=== PATIENT | female | born 1935 | race Caucasian/White ===

== ENCOUNTER 2019-09-19 08:39 | Outpatient (CLI) | payer MEDICARE, OTHER, SELFPAY ==
--- NOTE | 2019-09-19 08:40 | MM_ITS ---
WS: [id number] LEFT DIGITAL MAMMOGRAPHY WITH CAD CLINICAL INFORMATION: RT BREAST CA HISTORY: Right mastectomy COMPARISON: May 21, 2018 TECHNIQUE: 3 views of the left breast were obtained. FINDINGS: Scattered fibroglandular densities of the left breast. Vascular calcification. A few stable punctate calcifications in the superior left breast posterior depth and stable clustered calcifications mid le ft breast No suspicious focal mass, asymmetry, calcifications, or architectural distortion. No evidence of rai gnancy. MM/MM diagnostic mammo [id number] IMPRESSION: BI-RADS: 2-Benign FOLLOW UP: 1 Year Follow-up Recommend return to annual diagnostic mammography.
== END 2019-09-19 08:40 | disposition home or self-care (01) ==
LOC: RADSHAW 08:39
PROVIDERS: Family Provider Family Medicine; PCP Family Medicine; Visit Provider Family Medicine
DX: C50.911 Malignant neoplasm of unspecified site of right female breast (principal); R92.1 Mammographic calcification found on diagnostic imaging of breast
CPT/HCPCS: 77065

== ENCOUNTER 2020-09-29 10:39 | Emergency (ER) | payer MEDICARE, OTHER, SELFPAY ==
[2020-09-29 10:47] VITALS: BP 161/82; PULSE 65; RESP 16; TEMP 37.1; O2SAT 98; BMI 30.7
--- NOTE | 2020-09-29 11:11 | USR_ITS ---
PROCEDURE INFORMATION: Exam: US Duplex Left Lower Extremity Veins, Limited Exam date and time: 09/29/2020 11:12 AM Age: 84 years old Clinical indication: Swelling (edema) of limb; Lower extremity, left; Additional info: Lle swelling, calf tenderness TECHNIQUE: Imaging protocol: Real-time Duplex ultrasound of the Left Lower Extremity with 2-D ryan scale, color Doppler flow and spectral waveform analysis with image documentation. Limited exam focused on the left lower extremity veins. COMPARISON: No relevant prior studies available. FINDINGS: Left deep veins: Unremarkable. The common femoral, femoral, proximal profunda femoral and popliteal veins are patent without thrombus. Normal Doppler waveforms. Normal compressibility and/or augmentation response. Left superficial veins: Unremarkable. Saphenofemoral junction is patent without thrombus. Soft tissues: Unremarkable. US/CV venous duplex [facility] [id number] IMPRESSION: No evidence of deep vein thrombosis.
--- NOTE | 2020-09-29 11:31 | W.ED.EXTPRO ---
HPI - Extremity Problem General: Chief complaint: Extremity Problem,Nontraumatic Stated complaint: possible blood clot left leg Time Seen by Provider: 09/29/20 10:52 Source: patient Mode of arrival: ambulatory Limitations: no limitations History of Present Illness: HPI Narrative: 84-year-old female patient noticed pain in her left lower extremity of about a weeks duration. She went to see her primary care provider today who was concerned about a DVT and so asked her to come to the ED for evaluation of that. She denies any chest pain or shortness of breath. No trauma. MD Complaint: extremity pain and extremity swelling Onset (ago): week(s) (1) Pain Consistency: constant Location: left and lower extremity Quality: dull Radiation: none Relieving factors: nothing Exacerbating factors: nothing Associated symptoms: Deny fever(s) or rash Review of Systems General: Reports: 10 or more systems reviewed and unremarkable except in HPI and below Const: Denies: fever(s), chills or body aches Eyes: Denies: change in vision or blurry vision ENMT: Denies: throat pain, enlarged tonsils, odynophagia, hoarseness, mouth pain or swelling of lips/tongue Card: Denies: palpitations, irregular heart rhythm, edema or swelling of feet/ankles Resp: Denies: dyspnea, productive cough or non-productive cough GI: Denies: abdominal pain, nausea or vomiting : Denies: flank pain, difficulty voiding, dysuria, urinary frequency, urinary urgency or urinary hesitancy Musc: Reports: extremity pain and extremity swelling; Denies: neck pain or back pain Skin/Breast: Denies: rash, pruritus or erythema Neuro: Denies: headache(s), numbness in extremities or weakness in extremities Endo: Denies: polyuria, polydipsia or tired all the time Physical Exam Const: COMMON NORMALS: no acute distress, average body habitus, patient oriented x3, no limitations, healthy appearing, alert and well nourished HENMT: COMMON NORMALS: normocephalic, atraumatic and moist oral mucous membranes HEAD & SCALP: normocephalic and atraumatic Neck/C-Spine: COMMON NORMALS: no meningeal signs and no JVD Resp: COMMON NORMALS: normal respiratory effort, No retractions, No use of accessory muscles, clear to auscultation bilaterally and percussion normal AUSCULTATION: clear to auscultation bilaterally PERCUSSION: percussion normal Cardio: COMMON NORMALS: no JVD, regular rate, regular rhythm, S1 normal heart sound present, S2 normal heart sound present, No gallops present (Cardio), No clicks present (Cardio), No murmurs present (Cardio), No rub (Cardio) and Peripheral pulses 2+ throughout RATE: regular rate RHYTHM: regular rhythm HEART SOUNDS: S1 normal heart sound present and S2 normal heart sound present PERIPHERAL PULSES: Peripheral pulses 2+ throughout GI: COMMON NORMALS: Normal to inspection, nondistended, normoactive bowel sounds present, Soft to palpation, non-tender, No hepatosplenomegaly present, no masses and no bruits PALPATION: Yes Soft to palpation and Yes No hepatosplenomegaly present Extremity: COMMON NORMALS: normal to inspection, full ROM, capillary refill normal and no calf tenderness OTHER: Mild swelling of the left lower extremity compared to the right. Left calf tenderness. Positive Homans' sign. Neuro: COMMON NORMALS: patient oriented x3 SENSORIUM/ORIENTATION: Yes alert MENINGEAL SIGNS: Yes no meningeal signs Skin: COMMON NORMALS: no rashes or lesions noted, no wounds, turgor normal, no jaundice, no petechiae and no mottling GENERAL SKIN EXAM: no rashes or lesions noted and turgor normal Course Reevaluation(s): Reevaluation #1: Discussed imaging findings with her. Negative for DVT. We will discharge her home on conservative measures. She voiced understanding and is in agreement with the plan. Time: 12:57 Vital Signs: Vital signs: Vital Signs Temperature 98.7 F 09/29/20 10:47 Pulse Rate 87 09/29/20 13:17 Respiratory Rate 18 09/29/20 13:17 Blood Pressure 165/84 09/29/20 13:17 Pulse Oximetry 98 09/29/20 13:17 MDM - Extremity (Nontraumatic) MDM Narrative: Medical decision making narrative: 84-year-old female patient who was sent to the emergency department for evaluation of a possible DVT in her left lower extremity. She had had some pain and swelling to the left lower extremity, venous Doppler done today was negative for DVT and she is discharged home with no new orders. Medical Records: Attestation: I reviewed the patient's medical records. Imaging Data^: US Vascular: Attestation: I personally reviewed and interpreted this imaging study as follows: Radiologist's impression: [address] [place] [address] Ultrasound Report Signed Patient: Sarah Francois #: [id number] : 6Acct#:[id number] Age/Sex: 84 / FADM Date: 09/29/20 Loc: ERRoom/Bed: Attending Dr: Ordering Provider/Ordering MD: Josh Peng [place] [facility] [place] of Service: 09/29/20 Procedure(s): [place] [address] Accession Number(s): [id number] Report Number: [id number] PROCEDURE INFORMATION: Exam: US Duplex Left Lower Extremity Veins, Limited Exam date and time: 09/29/2020 11:12 AM Age: 84 years old Clinical indication: Swelling (edema) of limb; Lower extremity, left; Additional info: Lle swelling, calf tenderness TECHNIQUE: Imaging protocol: Real-time Duplex ultrasound of the Left Lower Extremity with 2-D ryan scale, color Doppler flow and spectral waveform analysis with image documentation. Limited exam focused on the left lower extremity veins. COMPARISON: No relevant prior studies available. FINDINGS: Left deep veins: Unremarkable. The common femoral, femoral, proximal profunda femoral and popliteal veins are patent without thrombus. Normal Doppler waveforms. Normal compressibility and/or augmentation response. Left superficial veins: Unremarkable. Saphenofemoral junction is patent without thrombus. Soft tissues: Unremarkable. US/[place] [id number] IMPRESSION: No evidence of deep vein thrombosis. Dictated By:Clraence Rosales Signed By:Frankie Rosales Date/Time:09/29/20 1243 DD/ 1241 Discharge Plan Discharge Patient Disposition: Home Clinical Impression: Acute pain of left lower extremity Condition: Stable Prescriptions: Continued benazepril-hydrochlorothiazide 20-25 mg tablet 1 tab PO DAILY RF: 0 Vitamin D3 1 tab PO DAILY RF: 0 Discharge Orders: Discharge ED (Routine); Ordered 09/29/20 Ordered By: Josh Peng Referrals: Jacqueline Friedman MD [Primary Care Provider] - 1-3 days Discharge Diet: Usual diet Discharge Activity: Increase activity as tolerated Patient Instructions: Musculoskeletal Pain (ED) Activity Restrictions/Additional Instructions: Return for any new or worsening symptoms. Follow-up with your primary care provider within 3 days. Take Tylenol or ibuprofen as needed for pain. Coding Level of Care Code ED Pathology Transcriptionist for Tatyana Fwd Exam Comprehensive
[2020-09-29 11:56] VITALS: PULSE 68
[2020-09-29 13:17] VITALS: BP 165/84; PULSE 87; RESP 18; O2SAT 98
== END 2020-09-29 13:18 | disposition home or self-care (01) ==
PROVIDERS: Emergency Provider Family Medicine; PCP Family Medicine
DX: M79.605 Pain in left leg (principal)
CPT/HCPCS: 93971; 99282

== ENCOUNTER 2020-10-10 14:52 | Outpatient (CLI) | payer MEDICARE, OTHER, SELFPAY ==
--- NOTE | 2020-10-10 14:54 | MM_ITS ---
WS: [id number] DIAGNOSTIC LEFT DIGITAL MAMMOGRAM WITH CAD HISTORY: HX OF BREAST Ca; rt MAST COMPARISON: None available. Technique: CC, MLO and ML views. Breast composition: There are scattered areas of fibroglandular density. Clustered calcifications in the superior posterior LEFT breast is not seen on the CC projection. These have been previously desc ribed and evaluated. The number of calcifications is minimally increased. There is a soft tissue comp onent. These calcifications need to be worked up additionally. MM/[place] [id number] IMPRESSION: BI-RADS: 0-Incomplete: Need additional imaging evaluation FOLLOW UP: Need Additional Imaging LEFT breast: Spot compression views (exaggerated lateral and possibly medial CC and MLO). True ML. Ultrasound to follow if abnormality persists.
== END 2020-10-10 14:53 | disposition home or self-care (01) ==
LOC: RADSHAW 14:54
PROVIDERS: PCP Family Medicine; Visit Provider Family Medicine
DX: Z85.3 Personal history of malignant neoplasm of breast (principal); Z90.11 Acquired absence of right breast and nipple; R92.1 Mammographic calcification found on diagnostic imaging of breast
CPT/HCPCS: 77065

== ENCOUNTER 2020-10-22 15:40 | Outpatient (CLI) | payer MEDICARE, OTHER, SELFPAY ==
[2020-10-22 17:03] LABS: Thyroid Stimulating Hormone 0.58 uIU/mL (0.27-4.20)
[2020-10-23 05:12] LABS: T3 Total 124 ng/dL (76-181)
[2020-10-25 20:52] LABS: TSH Receptor Binding Antibody <1.00 IU/L (< OR = 2.00)
== END 2020-10-22 15:41 | disposition home or self-care (01) ==
LOC: LAB 16:00
PROVIDERS: PCP Family Medicine; Visit Provider Internal Medicine
DX: E04.2 Nontoxic multinodular goiter (principal); R79.89 Other specified abnormal findings of blood chemistry; Z79.899 Other long term (current) drug therapy
CPT/HCPCS: 36415; 83516; 84443; 84480; 99203; 99204

== ENCOUNTER 2020-11-08 15:30 | Outpatient (CLI) | payer MEDICARE, OTHER, SELFPAY ==
--- NOTE | 2020-11-08 | USCV_ITS ---
Sarah Francois Age: 84 Gender: F : 1935 Exam Date: 11/08/2020 15:24 Ordering Phys: Jacqueline Friedman MD Technologist: Shefali Srinivasan Exam Location: [facility] [place] Indication: LT LEG PAIN RIGHT LEFT Brachial 161.00 mmHg Brachial 162.00 mmHg Pressure (mmHg) Waveform Pressure (mmHg) Waveform 159.00 FINAL OPERATIONS TECHNICIAN 88.00 121.00 DPA 79.00 0.75 Ankle/Brachial Index 0.33 FINDINGS Minimally diminished resting SERGEY on the right side Arteriotomies resting SERGEY on the left side CONCLUSIONS 1. Abnormal SERGEY, suggestive of severe peripheral artery disease on the left side 2. Abnormal ABIs, suggestive of mild peripheral artery disease on the right side Dr Denver Galvez MD [facility]ATED [facility]IN [facility] (Electronically Signed) Final Date: 12 Nov 2020 10:36 S
== END 2020-11-08 15:31 | disposition home or self-care (01) ==
LOC: US 15:33
PROVIDERS: PCP Family Medicine; Visit Provider Family Medicine
DX: I73.9 Peripheral vascular disease, unspecified (principal); M79.605 Pain in left leg
CPT/HCPCS: 93922

== ENCOUNTER 2020-12-31 11:15 | Outpatient (CLI) | payer MEDICARE, OTHER, SELFPAY ==
--- NOTE | 2020-12-31 11:31 | MM_ITS ---
WS: [id number] ADDITIONAL VIEWS LEFT MAMMOGRAM HISTORY: LT BREAST CALCS COMPARISON: 09/19/2019, 05/21/2018 Spot compression views LEFT breast in CC, MLO projections and true ML submitted. Cluster of calcifications in the upper-outer quadrant of the LEFT breast towards the axillary tail is again identified. There are calcifications. Some of these are round and some of these calcifications are linear. These calcifications were present in 2018 but the number is increased and the calcificat ion morphology is more linear. MM/[place] [id number] IMPRESSION: BI-RADS: 4-Suspicious Finding-Biopsy Should Be Considered FOLLOW UP: Biopsy Recommended Stereotactic biopsy recommended of LEFT breast calcifications. Notified Jacqueline Friedman MD at 12/31/2020 11:57 AM.
== END 2020-12-31 11:16 | disposition home or self-care (01) ==
LOC: RADSHAW 11:18
PROVIDERS: PCP Family Medicine; Visit Provider Family Medicine
DX: N64.89 Other specified disorders of breast (principal); R92.1 Mammographic calcification found on diagnostic imaging of breast
CPT/HCPCS: 77065

== ENCOUNTER 2020-12-31 12:01 | Outpatient (CLI) | payer MEDICARE, OTHER, SELFPAY ==
--- NOTE | 2020-12-31 13:30 | US_ITS ---
WS: [id number] THYROID ULTRASOUND (TI-RADS CRITERIA) History: Thyroid nodule.. Technique: Ultrasound examination of the thyroid and adjacent soft tissues is performed. FINDINGS: Right lobe: 2.0 cm x 1.1 cm x 1.5 cm. Volume: 1.6 cm3. Lobulated soft tissue at the RIGHT thyroid may be residual thyroid. May be a shrunken thyroid gland. Lymph nodes: None. Left lobe: 7.3 cm x 2.8 cm x 3.6 cm. Volume: 37.5 cm3. Along the LEFT neck at the region of the thyroid is a large heterogeneous mass. Heterogeneous mass es sentially fills the entire thyroid. Margins are difficult to define. Lymph nodes: None. There is a large mixed echogenicity mass in the region of the LEFT thyroid. Both solid and cystic com ponents and a few scattered calcifications. Mass extends into the isthmus. ACR TI-RADS total points: 7 ACR TI-RADS risk category: TR5 Isthmus: 0.2 cm. LEFT isthmus is enlarged. US/US thyroid [id number] Impression: TR5 Recommendation:Fine needle aspiration recommended of the large heterogeneous ma ss centered in the LEFT thyroid. There are concerning features. Neoplasm versus goiter. I
== END 2020-12-31 12:02 | disposition home or self-care (01) ==
PROVIDERS: PCP Family Medicine; Visit Provider Internal Medicine
DX: E04.1 Nontoxic single thyroid nodule (principal)
CPT/HCPCS: 76536

== ENCOUNTER 2021-01-22 11:53 | Outpatient (CLI) | payer MEDICARE, OTHER, SELFPAY ==
--- NOTE | 2021-01-22 12:04 | MM_ITS ---
WS: [id number] LEFT DIGITAL MAMMOGRAPHY WITH CAD CLINICAL INFORMATION: LT BREAST CALCIFICATIONS COMPARISON: December 31, 2020 and October 10, 2020 TECHNIQUE: 6 views of the left breast were obtained. FINDINGS: Scattered fibroglandular densities of the left breast. Again seen are the cluster of heterogeneous ca lcifications in the upper outer quadrant left breast posterior depth. These have slightly increased s tawanna 2018 and are nonspecific. Stereotactic biopsy not performed today due to large overlying vessels. RECOMMEND STEREOTACTIC NEEDLE LOCALIZATION WITH SURGICAL RESECTION. MM/[place] [id number] IMPRESSION: BI-RADS: 4-Suspicious Finding-Biopsy Should Be Considered FOLLOW UP: Surgical Biopsy Recommended
[2021-01-22 12:46] LABS: INR 1.02 (0.8-1.2)
== END 2021-01-22 11:54 | disposition home or self-care (01) ==
LOC: RADSHAW 12:01
PROVIDERS: PCP Family Medicine; Visit Provider Family Medicine
DX: R92.1 Mammographic calcification found on diagnostic imaging of breast (principal); N64.89 Other specified disorders of breast
CPT/HCPCS: 19081; 36415; 77065; 85610

== ENCOUNTER → 2021-04-19 09:57 | Outpatient (BNVA) | payer MEDICARE, OTHER, SELFPAY | PROVIDERS: PCP Family Medicine; Visit Provider Surgery | DX: Z01.812 Encounter for preprocedural laboratory examination (principal); Z20.822 Contact with and (suspected) exposure to COVID-19 | CPT/HCPCS: 87635 ==

== ENCOUNTER 2021-04-23 10:15 | Emergency (ER) | payer MEDICARE, OTHER, SELFPAY ==
--- NOTE | 2021-04-23 10:25 | XR_ITS ---
WS: [id number] XR chest 1V portable [id number] REASON FOR EXAM: chest pain FINDINGS: Moderate tortuosity the thoracic aorta. Heart at the upper limits of normal. Calcified granulomatous disease in both hemithoraces. No active pulmonary parenchymal or pleural disease noted. Degenerative changes in the mid and lower thoracic spine. XR/XR chest 1V portable [id number] IMPRESSION: No acute chest abnormality.
--- NOTE | 2021-04-23 10:26 | ECG_ITS ---
[facility] Test Date: 2021-04-23 Pat Name: Sarah Francois Department: Room: Gender: Female Multimedia Services Coordinator: : 1935 Requested By: Deb Manzo Order Number: [id number] Gisel MD: Denver Galvez M.D. Measurements Intervals Eleva Rate: 45 P: 71 HI: 201 QRS: 90 QRSD: 73 T: 71 QT: 465 QTc: 406 Interpretive Statements SINUS BRADYCARDIA WITH SINUS ARRHYTHMIA LOW QRS VOLTAGE IN PRECORDIAL LEADS [QRS DEFLECTION < 1.0 mV IN CHEST LEADS] MARKED ST ELEVATION, CONSIDER INFERIOR INJURY /early repolarization changes [MARKED ST ELEVATION W/O NORMALLY INFLECTED T-WAVE IN II/aVF] ACUTE ID Compared to ECG 12/30/2018 07:48:59 Low QRS voltage now present ST (T wave) deviation now present Myocardial infarct finding now present Electronically Signed On 04-24-2021 19:52:34 CDT by Denver Galvez M.D. [id number]
[2021-04-23 10:53] VITALS: BP 114/67; PULSE 66; RESP 18; TEMP 36.7; O2SAT 100; BMI 27.9
--- NOTE | 2021-04-23 11:17 | ED_ITS ---
HPI - Chest Pain General: Chief Complaint: Chest Pain Stated Complaint: CP Time Seen by Provider: 04/23/21 11:12 History of Present Illness: HPI narrative: This patient is a 85-year-old female who presents to the emergency department with complaint of atypical type chest pain. Patient describes related to epigastrium area and slightly to the left. Patient also describes some pressure. 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 Patient just complains of fatigue and also describes some dizziness when she first got up this morning. Upon arrival EKG was performed and the patient is a sinus bradycardic rhythm and sinus arrhythmia with a heart rate of 45. Questionable ST changes. Will have EKG reviewed by cardiology. Patient does take aspirin and Plavix at home and recently had an iliac stent placed. Patient does have a history of breast cancer. Patient has held her Plavix due to a breast biopsy that is scheduled this week. I did speak to Dr. Leonila valladares about the patient's EKG. He states no ST elevation at this time but is agreeable for atropine due to low heart rate to see if it resolves patient's symptoms. Will do medical evaluation treat as needed MD complaint: chest pain Pertinent past history: coronary artery disease Onset (ago): hour(s) Timing of current episode: constant Prior episodes: No Onset: during exertion Pain location: substernal Pain radiation: none Severity: moderate Quality: aching Relieving factors: nothing Exacerbating factors: nothing Associated symptoms: Deny abdominal pain, dyspnea, fever(s), nausea, palpitations or vomiting Review of Systems General: Reports: 10 or more systems reviewed and unremarkable except in HPI and below Const: Denies: fever(s), chills, body aches or fatigue Eyes: Denies: change in vision or blurry vision ENMT: Denies: throat pain, hoarseness or mouth pain Card: Reports: chest pain and lightheadedness; Denies: palpitations, irregular heart rhythm, edema or swelling of feet/ankles Resp: Denies: dyspnea, productive cough, non-productive cough, wheezing or pain on inspiration GI: Denies: abdominal pain, nausea or vomiting : Denies: flank pain, difficulty voiding, dysuria, urinary frequency, urinary urgency or urinary hesitancy Musc: Denies: neck pain, back pain, extremity pain, extremity swelling, joint pain, joint swelling, joint redness, joint warmth or limited range of motion Skin/Breast: Denies: rash, pruritus, erythema or skin tenderness Neuro: Denies: headache(s), numbness in extremities or weakness in extremities Psych: Denies: anxiety or depression PFSH ED PFSH: Social History Smoking and tobacco status: never smoked Second hand smoke exposure: Yes Alcohol intake: current Alcohol intake frequency: holidays/special occasions only Physical Exam Const: COMMON NORMALS: no acute distress, average body habitus, patient oriented x3, no limitations, healthy appearing, alert and well nourished HENMT: COMMON NORMALS: normocephalic, atraumatic, hearing grossly normal bilaterally, external ears normal, EAC's normal, TM's normal bilaterally, Normal external nose present, Normal nasal mucous membranes and turbinates present, moist oral mucous membranes, oropharynx normal, dentition normal and gingiva normal HEAD & SCALP: normocephalic and atraumatic NOSE: Normal external nose present and Normal nasal mucous membranes and turbinates present EXTERNAL EAR: Yes external ears normal EXTERNAL AUDITORY CANAL: EAC's normal TYMPANIC MEMBRANE: TM's normal bilaterally Neck/C-Spine: COMMON NORMALS: full ROM, no lymphadenopathy, supple, no meningeal signs, no JVD, Thyroid normal and No carotid bruits THYROID: Thyroid normal Chest: COMMONS NORMALS: normal inspection of the chest, normal palpation of entire chest wall, normal inspection of the breasts and normal palpation of the breasts Breast/axilla inspection: Yes normal inspection of the breasts BREAST/AXILLA PALPATION: Yes normal palpation of the breasts Resp: COMMON NORMALS: normal respiratory effort, No retractions, No use of accessory muscles, clear to auscultation bilaterally and percussion normal AUSCULTATION: clear to auscultation bilaterally PERCUSSION: percussion normal Cardio: COMMON NORMALS: no JVD, regular rate, regular rhythm, S1 normal heart sound present, S2 normal heart sound present, No gallops present (Cardio), No clicks present (Cardio), No murmurs present (Cardio), No rub (Cardio) and Peripheral pulses 2+ throughout RATE: regular rate RHYTHM: regular rhythm HEART SOUNDS: S1 normal heart sound present and S2 normal heart sound present PERIPHERAL PULSES: Peripheral pulses 2+ throughout GI: COMMON NORMALS: Normal to inspection, nondistended, normoactive bowel sounds present, Soft to palpation, non-tender, No hepatosplenomegaly present, no masses and no bruits PALPATION: Yes Soft to palpation and Yes No hepatosplenomegaly present Back/Pelvis: COMMON NORMALS: thoracic and lumbar spine normal to inspection, no thoracic nor lumbar tenderness, thoraco-lumbar ROM normal and straight leg raise negative bilaterally Extremity: COMMON NORMALS: normal to inspection, full ROM, capillary refill normal, no joint enlargement, no clubbing, cyanosis or edema, no calf tenderness and no pedal edema Neuro: COMMON NORMALS: patient oriented x3 SENSORIUM/ORIENTATION: Yes alert MENINGEAL SIGNS: Yes no meningeal signs Course Reevaluation(s): Reevaluation #1: Patient received atropine heart rate up to 86 and all symptoms resolved. Patient complains of no chest pain. Time: 12:35 Reevaluation #2: Patient is requesting to be discharged home patient maintained symptom-free and heart rate stays in the mid 60s to low 70s. Patient states understands will be set up for an outpatient Holter monitor and will be referred to cardiology for outpatient appointment. Time: 14:36 Consultations: Consultation #1: I have discussed with Dr. Lopez cardiology patient and EKG findings. He agrees no ST elevation on EKG at this time. He also agrees with IV atropine due to bradycardia. He is available for further consultation as needed. Time: 11:24 Consultation #2: I did discuss at length with Dr. Keen he is agreeable to see the patient as an outpatient in the clinic. He agrees with Holter monitor. Time: 14:37 Vital Signs: Vital signs: Vital Signs Temperature 98.0 F 04/23/21 10:53 Pulse Rate 74 04/23/21 13:58 Respiratory Rate 17 04/23/21 13:58 Blood Pressure 177/83 04/23/21 12:32 Pulse Oximetry 98 04/23/21 13:58 MDM - Chest Pain MDM Narrative: Medical decision making narrative: This patient is a 85-year-old female who presents to the emergency department with complaint of atypical type chest pain. Patient describes related to epigastrium area and slightly to the left. Patient also describes some pressure. 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 Patient just complains of fatigue and also describes some dizziness when she first got up this morning. Upon arrival EKG was performed and the patient is a sinus bradycardic rhythm and sinus arrhythmia with a heart rate of 45. Questionable ST changes. Will have EKG reviewed by cardiology. Patient does take aspirin and Plavix at home and recently had an iliac stent placed. Patient does have a history of breast cancer. Patient has held her Plavix due to a breast biopsy that is scheduled this week. I did speak to Dr. Keen cardiology about the patient's EKG. He states no ST elevation at this time but is agreeable for atropine due to low heart rate to see if it resolves patient's symptoms. Will do medical evaluation treat as needed Lab Data: Labs: Lab Results 04/23/21 04/23/21 04/23/21 13:10 13:10 13:10 WBC 10.7 10^3/uL H 10 ^3/uL (4.0-10.0) RBC 4.91 10^6/uL 10^6 /uL (4.1-5.3) Hgb 14.3 g/dL g/dL (11.5-15.3) Hct 46.0 % % (37.0-47.0) MCV 93.7 fl fl (81-99) MCH 29.1 pg pg (28.0-34.0) MCHC 31.1 g/dL g/dL (30.0-36.0) RDW 12.4 % % (12.1-15.1) Plt Count 232 10^3/cmm 10^3 /cmm (130-400) MPV 9.5 fL fL (7.4-10.4) Neut % (Auto) 85.4 % % Lymph % (Auto) 7.7 % % [place] % (Auto) 5.8 % % Eos % (Auto) 0.5 % % Baso % (Auto) 0.3 % % Neut # (Auto) 9.15 10^3/uL H 10 ^3/uL (1.8-7.7) Lymph # (Auto) 0.8 10^3/uL 10^3/ uL (0.8-4.8) [place] # (Auto) 0.6 10^3/uL 10^3/ uL (0.2-0.9) Eos # (Auto) 0.1 10^3/uL 10^3/ uL (0.0-0.8) Baso # (Auto) 0.0 10^3/uL 10^3/ uL (0.0-0.1) Nucleated RBC % (a uto) 0 % % Nucleated RBCs # 0.0 /100WBC /100W BC Sodium 140 mmol/L mmol/L (136-145) Potassium 4.3 mmol/L mmol/L (3.5-5.1) Chloride 107 mmol/L mmol/L (98-107) Carbon Dioxide 26 mmol/L mmol/L (22-29) Anion Gap 11.3 (5-19) BUN 15 mg/dL mg/dL (8-23) Creatinine 0.6 mg/dL mg/dL (0.5-0.9) GFR Calculation Not Reportable Glucose 122 mg/dL H mg/dL (65-115) Calculated Osmolal ity 292 mOsm/kg mOsm/ kg (285-295) Calcium 9.4 mg/dL mg/dL (8.5-10.5) Total Bilirubin 1.0 mg/dL mg/dL (0.15-1.2) AST 82 U/L H U/L (0-32) ALT 42 U/L H U/L (0-33) Alkaline Phosphata se 97 IU/L IU/L (35-105) Troponin T Baselin e 6 ng/L ng/L (0-10) Total Protein 7.3 g/dL g/dL (6.6-8.7) Albumin 3.9 g/dL g/dL (3.5-5.2) Globulin 3.4 g/dL g/dL (1.3-4.6) Imaging Data^: CXR: Attestation: I personally reviewed and interpreted this imaging study as follows: Radiologist's impression: FINDINGS: Moderate tortuosity the thoracic aorta. Heart at the upper limits of normal. Calcified granulomatous disease in both hemithoraces. No active pulmonary parenchymal or pleural disease noted. Degenerative changes in the mid and lower thoracic spine. XR/XR chest 1V portable [id number] IMPRESSION: No acute chest abnormality. EKG Data^: EKG 1: Attestation: I personally reviewed and interpreted this EKG as follows: EKG interpretation date: 04/23/21 EKG interpretation time: 11:02 Prior EKG tracings: not available for review Ischemic changes: non-specific ST-T wave changes Interpretation: Sinus bradycardia with sinus arrhythmia heart rate 45. Nonspecific EKG changes possibly repolarization issue. Reviewed with cardiology. EKG 2: Attestation: I personally reviewed and interpreted this EKG as follows: EKG interpretation date: 04/23/21 EKG interpretation time: 13:04 Prior EKG tracings: available for review Interpretation: Sinus rhythm with a heart rate of 80 nonspecific EKG changes. Patient is pain-free. Discharge Plan Discharge Patient Disposition: Home Clinical Impression: Bradycardia Condition: Stable Prescriptions: No Action timolol 0.5 % drops 1 drp ophthalmic (eye) BID RF: 0 clopidogrel [Plavix] 75 mg tablet 75 mg PO BEDTIME RF: 0 aspirin [Adult Aspirin Regimen] 81 mg tablet,delayed release (DR/EC) 81 mg PO QAM RF: 0 colchicine 0.6 mg tablet 0.6 mg PO DAILY PRN (Reason: gout) RF: 0 Vitamin D3 25 mcg (1,000 unit) Capsule 3,000 unit PO QAM RF: 0 Discharge Orders: Discharge ED (Routine); Ordered 04/23/21 Ordered By: Edilberto Valdivia Referrals: Jacqueline Friedman MD [Primary Care Provider] - Miquel Keen M.D [Physician] - Discharge Diet: Advance as tolerated Patient Instructions: Opioid Safety Activity Restrictions/Additional Instructions: Follow-up with cardiology as instructed. Case management was set up for Holter monitor. Wear as instructed. Keep a daily blood pressure log first thing in the morning and in the evening. Write down your blood pressure pulse and time review this with cardiology. Return to the emergency department if symptoms fail to improve or worsen Coding Level of Care Code ED Computer Language Coder for Tatyana Fwd Exam Comprehensive
[2021-04-23 11:47] VITALS: BP 163/79; PULSE 47; RESP 13; O2SAT 99
[2021-04-23] MEDS: aspirin 81 mg EC Tablet 162 MG PO (12:06)
[2021-04-23] MEDS: atropine 0.1 mg/mL Syr 10 mL 1 MG IVP (12:29)
[2021-04-23 12:32] VITALS: BP 177/83; PULSE 89; RESP 19; O2SAT 99
[2021-04-23 13:19] LABS: Basophils % 0.3 %; Eosinophils # 0.1 10^3/uL (0.0-0.8); Eosinophils % 0.5 %; Hemoglobin 14.3 g/dL (11.5-15.3); Lymphocytes # 0.8 10^3/uL (0.8-4.8); Lymphocytes % 7.7 %; Mean Corpuscular HGB Conc 31.1 g/dL (30.0-36.0); Mean Corpuscular Hemoglobin 29.1 pg (28.0-34.0); Mean Corpuscular Volume 93.7 fl (81-99); Mean Platelet Volume 9.5 fL (7.4-10.4); Monocytes # 0.6 10^3/uL (0.2-0.9); Monocytes % 5.8 %; Neutrophils # 9.15 10^3/uL (1.8-7.7); Neutrophils % 85.4 %; Nucleated Red Blood Cells % 0 %; Platelet Count 232 10^3/cmm (130-400); Red Blood Count 4.91 10^6/uL (4.1-5.3); Red Cell Distribution Width 12.4 % (12.1-15.1); White Blood Count 10.7 10^3/uL (4.0-10.0)
[2021-04-23 13:48] LABS: Troponin(5th) Baseline 6 ng/L (0-10)
--- NOTE | 2021-04-23 13:48 | PC.PHAR ---
pt states she takes care of her own medications-pt states she is suppose to take benazepril-hctz 20-25mg daily pt states she hasnt taken in 2 months pt states she tries to get refills but never gets them-ext med history shows last filled 11/27/20 30d/s
[2021-04-23 13:51] LABS: Alanine Aminotransferase 42 U/L (0-33); Albumin Level 3.9 g/dL (3.5-5.2); Alkaline Phosphatase 97 IU/L (35-105); Anion Gap 11.3 (5-19); Aspartate Amino Transferase 82 U/L (0-32); Blood Urea Nitrogen 15 mg/dL (8-23); Calcium 9.4 mg/dL (8.5-10.5); Carbon Dioxide 26 mmol/L (22-29); Chloride 107 mmol/L (98-107); Globulin 3.4 g/dL (1.3-4.6); Glucose 122 mg/dL (65-115); Osmolality Calculated 292 mOsm/kg (285-295); Potassium 4.3 mmol/L (3.5-5.1); Sodium 140 mmol/L (136-145); Total Protein 7.3 g/dL (6.6-8.7)
[2021-04-23 13:58] VITALS: PULSE 74; RESP 17; O2SAT 98
[2021-04-23 14:58] VITALS: PULSE 88; O2SAT 99
--- NOTE | 2021-04-23 15:14 | DCPLANNER ---
therapeutic case manager had message to schedule a follow up appointment for patient with heart care for a 72 hour halter monitor. therapeutic case manager faxed signed order to centralized scheduling, who will call patient with appointment information.
--- NOTE | 2021-04-23 16:26 | ECG_ITS ---
[facility] Test Date: 2021-04-23 Pat Name: Sarah Francois Department: Room: Gender: Female [employer] Agent: : [id number] Requested By: Deb Manzo Order Number: [id number] Gisel MD: Candice Hodgson M.D. Measurements Intervals [place] Rate: 80 P: 56 GA: 201 QRS: 67 QRSD: 76 T: 56 QT: 370 QTc: 429 Interpretive Statements SINUS RHYTHM POSSIBLE LEFT ATRIAL ENLARGEMENT [-0.1mV P-WAVE IN V1/V2] LOW QRS VOLTAGE IN PRECORDIAL LEADS [QRS DEFLECTION < 1.0 mV IN CHEST LEADS] Compared to ECG 04/23/2021 11:02:03 Sinus bradycardia no longer present Sinus arrhythmia no longer present ST (T wave) deviation no longer present Myocardial infarct finding no longer present Electronically Signed On 04-23-2021 22:27:37 CDT by Candice Hodgson M.D. [email or web address]
--- NOTE | 2021-05-03 13:25 | DCPLANNER ---
Patient had an appointment scheduled for a 72 hour [facility] monitor - patient did attend appointment.
== END 2021-04-23 14:59 | disposition home or self-care (01) ==
PROVIDERS: Physician Assistant; Emergency Provider Emergency Medicine; PCP Family Medicine
DX: R00.1 Bradycardia, unspecified (principal); Z79.02 Long term (current) use of antithrombotics/antiplatelets; Z79.82 Long term (current) use of aspirin; Z77.22 Contact with and (suspected) exposure to environmental tobacco smoke (acute) (chronic)
CPT/HCPCS: 36415; 71045; 80053; 84484; 85025; 93005; 96374; 99283; J0461

== ENCOUNTER 2021-04-25 07:34 | Day surgery (SDC) | payer MEDICARE, OTHER, SELFPAY ==
[2021-04-24 13:15] VITALS: BP 131/73; PULSE 47; RESP 18; TEMP 36; O2SAT 97
[2021-04-24 16:26] VITALS: BMI 27.1
[2021-04-25] VITALS (7 sets, daily range): BP systolic 128–171; BP diastolic 57–83; PULSE 48–56; RESP 17–18; TEMP 35.9–36.6; O2SAT 94–99
--- NOTE | 2021-04-25 07:40 | MM_ITS ---
WS: [id number] LEFT BREAST NEEDLE LOCALIZATION HISTORY: LT BREAST CALCIFICATIONS COMPARISON: 01/22/2021 and 12/31/2020 Procedure, risks and complications are explained to the patient. Consent has been obtained. Localization of calcifications is done with grade. Skin is cleansed with ChloraPrep and anesthetized with 1% buffered lidocaine. Kopans needle is inserted to the level of the calcifications. Needle is a dvanced 1.5 cm beyond the calcifications. Calcifications are localized upper-outer quadrant LEFT breast. Postprocedure the wire extends 1.5 cm beyond the calcifications. Wire is secured and the patient is sent to the OR with no complications. SPECIMEN RADIOGRAPH: Calcifications are present within the specimen. MM/MM surgical specimen LT IMPRESSION: 1. Uncomplicated wire localization of calcifications LEFT upper outer quadrant . PATHOLOGY: Benign breast tissue with stromal sclerosis and fibrocystic changes. Focal tubular adenosis. Benign microcalcifications. No malignancy. RECOMMENDATION: Diagnostic LEFT mammogram 6 months.
--- NOTE | 2021-04-25 07:40 | MM_ITS ---
WS: [id number] LEFT BREAST NEEDLE LOCALIZATION HISTORY: LT BREAST CALCIFICATIONS COMPARISON: 01/22/2021 and 12/31/2020 Procedure, risks and complications are explained to the patient. Consent has been obtained. Localization of calcifications is done with grade. Skin is cleansed with ChloraPrep and anesthetized with 1% buffered lidocaine. Kopans needle is inserted to the level of the calcifications. Needle is a dvanced 1.5 cm beyond the calcifications. Calcifications are localized upper-outer quadrant LEFT breast. Postprocedure the wire extends 1.5 cm beyond the calcifications. Wire is secured and the patient is sent to the OR with no complications. SPECIMEN RADIOGRAPH: Calcifications are present within the specimen. MM/[place] [id number] IMPRESSION: 1. Uncomplicated wire localization of calcifications LEFT upper outer quadrant . PATHOLOGY: Benign breast tissue with stromal sclerosis and fibrocystic changes. Focal tubular adenosis. Benign microcalcifications. No malignancy. RECOMMENDATION: Diagnostic LEFT mammogram 6 months.
--- NOTE | 2021-04-25 07:40 | MM_ITS ---
WS: [id number] LEFT BREAST NEEDLE LOCALIZATION HISTORY: LT BREAST CALCIFICATIONS COMPARISON: 01/22/2021 and 12/31/2020 Procedure, risks and complications are explained to the patient. Consent has been obtained. Localization of calcifications is done with grade. Skin is cleansed with ChloraPrep and anesthetized with 1% buffered lidocaine. Kopans needle is inserted to the level of the calcifications. Needle is a dvanced 1.5 cm beyond the calcifications. Calcifications are localized upper-outer quadrant LEFT breast. Postprocedure the wire extends 1.5 cm beyond the calcifications. Wire is secured and the patient is sent to the OR with no complications. SPECIMEN RADIOGRAPH: Calcifications are present within the specimen. MM/[place] [id number] IMPRESSION: 1. Uncomplicated wire localization of calcifications LEFT upper outer quadrant . PATHOLOGY: Benign breast tissue with stromal sclerosis and fibrocystic changes. Focal tubular adenosis. Benign microcalcifications. No malignancy. RECOMMENDATION: Diagnostic LEFT mammogram 6 months.
--- NOTE | 2021-04-25 10:05 | W.PM.OPSUD ---
Surgery/Procedure H&P Update DATE OF PROCEDURE: April 25, 2021 DATE H&P PERFORMED: 04/02/21 H&P UPDATE INFORMATION: Changes to prior documentation as noted here (Patient was in the emergency room with symptomatic bradycardia since I saw her last, but none since.) PREOP DIAGNOSIS: Left breast calcifications. PLANNED PROCEDURE: Operation Date: 04/25/21 09:45 Proposed Procedures p Breast Biopsy Needle Localization(Left) - Stephane Howard MD s Breast Biopsy left(Left) - Stephane Howard MD
--- NOTE | 2021-04-25 10:17 | ANES.PREANE2 ---
Pre-Anesthetic Assessment Pre-Anesthetic Assessment: Height/Weight: Height 1.65 m Weight 73.936 kg Temp Pulse Resp BP Pulse Ox 97.3 F L 55 L 17 171/83 97 04/25/21 10:07 04/25/21 10:07 04/25/21 10:07 04/25/21 10:07 04/25/21 10:07 Preop Diagnosis: Left breast calcifications. Proposed Procedure: Operation Date: 04/25/21 09:45 Proposed Procedures p Breast Biopsy Needle Localization(Left) - Stephane Howard MD s Breast Biopsy left(Left) - Stephane Howard MD Was Beta George taken within 24 hours: N/A Was Clonidine taken within 24 hours: N/A Last intake: Intake Last Liquid Date 04/24/21 Last Liquid Time 20:00 Last Solid Date 04/24/21 Last Solid Time 20:00 Social: Social History: No alcohol and No tobacco Exam: Pre-Anes Outpt Exam: alert, oriented x 3 and clear to auscultation bilaterally Airway: Submandibular: WNL Cervical ROM: WNL MP: 1 Dentition: Full History/ROS: No significant complaints Pulmonary: Pulmonary: None reported CV/HEM: CV/HEM: PVD Comments: Recent episode of sinus marilyn and near syncopal episode; ED resolved w atropine; scheduled to see towboat captain for eval in near future Hx PAD and LE stent placed : : None reported Hepatic: Hepatic: None reported GI: GI: None reported Metabolic: Metabolic: Thyroid Musc/skel: Musc/skel: None reported Neuropsych: Neuropsych: None reported Anesthetic Plan: ASA status: 2 Anesthesia: MAC Risk of > 500 ml blood loss (7ml/kg in children): No PFSH Anesthesia PFSH: Social History Smoking and tobacco status: never smoked Second hand smoke exposure: Yes Alcohol intake: current Alcohol intake frequency: holidays/special occasions only Data Anesthesia Cardiac Studies: No Data to Display
[2021-04-25] MEDS: sodium chloride 0.9% 1,000 ML 30 ML IV (10:20)
--- NOTE | 2021-04-25 11:09 | PM.OP ---
Operative Report Date of procedure: April 25, 2021 Pre-op Diagnosis: Left breast calcifications. Post-op diagnosis: same Procedure Done: Left breast lumpectomy following preoperative needle localization. Specimens removed/disposition: Left breast lumpectomy specimen containing localization wire. Surgeon: Stephane Howard Anesthesia: MAC Estimated blood loss (mL): 10 Complications: None. Condition: stable Disposition: same day Procedure: The patient was brought to the operating room and was placed in a supine position after undergoing preoperative needle localization in the radiology department. A monitored anesthetic was induced. The left breast was prepped and draped in a sterile fashion, taking care not to disturb the localization wire. The patient had the localization wire entering the upper outer portion of the left breast in the axillary tail. A curvilinear incision was carried out in the upper outer aspect of the left breast and cautery was used to enter the breast tissue. The skin was undermined toward the wire and the wire was brought into the incision. Dissection was then carried out posteriorly along the course of the wire until the hub of the wire was seen. Dr. Handley in radiology had indicated to me that the calcifications were somewhat medial and somewhat posterior to the wire itself and so the tissue at the hub of the needle as well as medially was grasped with an Allis clamp. Sharp dissection was then used to come all the way around the wire trying to include as much of the tissue posteriorly and medially as possible. The specimen was removed. The wound was irrigated with saline and some small bleeding points were controlled with cautery. A final round of irrigation was carried out. No additional abnormalities were seen or palpated anywhere in the wound. The skin was reapproximated using a running subcuticular suture of 4-0 Vicryl. Benzoin and Steri-Strips were placed over the incision and a sterile bandage followed. Dr. Handley confirmed that we had the calcifications within the specimen prior to the patient leaving the operating room. The patient was taken to the recovery area in stable condition postoperatively.
== END 2021-04-25 13:34 | disposition home or self-care (01) ==
PROVIDERS: PCP Family Medicine; Visit Provider Surgery
PROC: (CPT 19301; principal; 2021-04-25 09:45)
PROC: (CPT 19301; 2021-04-25 09:45)
DX: R92.1 Mammographic calcification found on diagnostic imaging of breast (principal); I10 Essential (primary) hypertension; Z85.3 Personal history of malignant neoplasm of breast
CPT/HCPCS: 19301; 19281; 77065; 88307; 96365; C1889; J0690; J1100; J2250; J2405; J2704; J3010; J3490; J7030

== ENCOUNTER 2021-05-07 07:00 | Outpatient (CLI) | payer MEDICARE, OTHER, SELFPAY ==
--- NOTE | 2021-05-07 07:06 | US_ITS ---
WS: [id number] ULTRASOUND-GUIDED LEFT THYROID NODULE FNA HISTORY: THYROID MASS Procedure, risks, and complications were explained to the patient. Consent has been obtained. The skin is cleansed with ChloraPrep and anesthetized with 1% buffered lidocaine. FNA performed with 25 gauge needles. electrophysiology technologist is present to fix slides. US/US biopsy thyroid [id number] IMPRESSION: Uncomplicated FNA of a LEFT thyroid nodule. Final pathology results pending.
== END 2021-05-07 07:01 | disposition home or self-care (01) ==
PROVIDERS: PCP Family Medicine; Visit Provider Otolaryngology
DX: E04.1 Nontoxic single thyroid nodule (principal)
CPT/HCPCS: 10005; 88173; 88305

== ENCOUNTER → 2021-06-20 10:58 | Outpatient (BNVA) | payer MEDICARE, OTHER, SELFPAY | PROVIDERS: PCP Family Medicine; Visit Provider Internal Medicine | DX: E04.1 Nontoxic single thyroid nodule (principal); R79.89 Other specified abnormal findings of blood chemistry | CPT/HCPCS: 99214 ==

== ENCOUNTER 2021-10-10 07:37 | Outpatient (CLI) | payer MEDICARE, OTHER, SELFPAY ==
--- NOTE | 2021-10-10 07:46 | MM_ITS ---
WS: [id number] DIAGNOSTIC LEFT DIGITAL MAMMOGRAM, 3-D WITH CAD HISTORY: LT BREAST CALCIFICATION COMPARISON: 04/25/2021, 01/08/2020 and 10/10/2020 Technique: CC, MLO and ML views. Breast composition: There are scattered areas of fibroglandular density. Postsurgical changes are no carolynn in the upper-outer quadrant of the LEFT breast. The calcifications previously described have been removed surgically. No recurrent calcifications. There is an additional cluster of calcifications wh ich is stable and more coarse in the posterior central LEFT breast.. MM/[place] [id number] IMPRESSION: BI-RADS: 2-Benign FOLLOW UP: 1 Year Follow-up
== END 2021-10-10 07:38 | disposition home or self-care (01) ==
LOC: RAD 07:41
PROVIDERS: PCP Family Medicine; Visit Provider Family Medicine
DX: R92.1 Mammographic calcification found on diagnostic imaging of breast (principal)
CPT/HCPCS: 77061

== ENCOUNTER 2021-10-14 07:46 | Outpatient (CLI) | payer MEDICARE, OTHER, SELFPAY ==
--- NOTE | 2021-10-14 12:30 | US_ITS ---
WS: [id number] THYROID ULTRASOUND HISTORY: assess left side of the thyroid it was not clear in last US COMPARISON: 05/07/2021 and 12/31/2020 Right lobe: 1.1 cm x 0.9 cm x 2.9 cm (w x ap x l). Volume: 1.4 cm3. As per history interval RIGHT thyroidectomy. There is very minimal soft tissue at the RIGHT thyroid b ed which is probably small amount of residual tissue. No increase in size. No increased vascularity. Left lobe: 3.0 cm x 2.9 cm x 6.6 cm (w x ap x l). Volume: 29.9 cm3. Enlarged heterogeneous thyroid. Gland was significantly enlarged on the prior examination. There is a nodule which is partially obscured and ill-defined in the mid gland which was recently biopsied. The re are a few cystic areas scattered throughout the gland. The nodule on today's study is very poorly visualized and not discrete. By history this nodule has been previously biopsied. Isthmus: 0.2 cm. US/US thyroid [id number] IMPRESSION: 1. Heterogeneous enlarged LEFT thyroid. Ill-defined nodule in the central glan d was previously biopsied. No new or enlarging nodules. 2. Status post RIGHT thyroidectomy as per history. Minimal but stable soft tis yaya in the RIGHT thyroid bed.
== END 2021-10-14 07:47 | disposition home or self-care (01) ==
LOC: RAD 07:47
PROVIDERS: PCP Family Medicine; Visit Provider Internal Medicine
DX: E04.1 Nontoxic single thyroid nodule (principal); E04.9 Nontoxic goiter, unspecified; E89.0 Postprocedural hypothyroidism
CPT/HCPCS: 76536

== ENCOUNTER → 2021-10-21 08:33 | Outpatient (BNVA) | payer MEDICARE, OTHER, SELFPAY | PROVIDERS: PCP Family Medicine; Visit Provider Internal Medicine | DX: E04.1 Nontoxic single thyroid nodule (principal); R79.89 Other specified abnormal findings of blood chemistry | CPT/HCPCS: 84439; 84443; 99213; 99214 ==

== ENCOUNTER 2022-03-31 08:27 | Outpatient (CLI) | payer MEDICARE, OTHER, SELFPAY ==
--- NOTE | 2022-03-31 08:47 | ECG_ITS ---
[facility] Test Date: 2022-03-31 Pat Name: Sarah Francois Department: Room: Gender: Female Arc Cutter Plasma Arc: : 1935 Requested By: Jacqueline Palafox Order Number: [id number] Gisel MD: Candice Hodgson M.D. Interpretive Statements NAME OF STUDY: EXERCISE SESTAMIBI STRESS TEST INDICATION: MIDSTERNAL CHEST PAIN Baseline blood pressure of 119/64 mm Hg, heart rate of 58 beats per minute. EKG showed sinus rhythm, rightward axis with normal ST-Ts. The patient exercised for 3 minutes 59 seconds on a standard Eric protocol. Patient attained a maximum heart rate of 154 beats per minute(114% of the maximum predicted heart rate) with a blood pressure at the peak exercise of 168/72 mm Hg. The EKG at the peak exercise revealed half to [address] depression in leads II, III, aVF, V5-V6. Patient did not have any chest pain or any significant arrhythmis with the exercise During the recovery phase, there were no new changes. Blood pressure at the end of the recovery phase was 173/68 mm Hg with a heart rate of 83 beats per minute. CONCLUSION: 1. Normal EKG response to treadmill exercise. 2. No exercise-induced chest pain or cardiac arrhythmia. 3. Fair exercise tolerance, attained a maximum of 7 METs. 4. Baseline normal blood pressure with normal response to exercise. 5. Perfusion scan will be documented separately. Electronically Signed On 04-03-2022 16:41:56 CDT by Candice Hodgson M.D. [id number]
--- NOTE | 2022-03-31 08:48 | NMCV_ITS ---
NM rosemary perf SPECT r/s* [id number] Sarah Francois Age: 86 Gender: F : 1935 Exam Date: 03/31/2022 10:01 Ordering Phys: Jacqueline Friedman MD Technologist: ARIANNA Tran Exam Location: [facility] Indications: CHEST PAIN STRESS TEST Please see separate stress test report in [facility] for full findings IMAGE PROTOCOL Rest/Stress 1 Exercise Day Radiopharmaceutical Dose (mCi) Administration Site Administered by Rest: Tc-99m 10.8 IV ARIANNA Gresham Sestamibi Stress:Tc-99m 32.4 IV ARIANNA Gresham Sestamibi Rest: 31-Mar-2022 60 Discovery 630 Stress: 31-Mar-2022 30 Discovery 630 Radiopharmaceutical was injected at 100% maximum heart rate. Images obtained in supine and prone position. SPECT RESULTS Technical Quality: Excellent Raw Data Analysis: Normal Image Corrections: No attenuation or motion correction applied Summed Stress Score: 0 Summed Rest Score: 1 Summed Difference Score: 0 PERFUSION FINDINGS SPECT images demonstrate homogeneous tracer distribution throughout the myocardium. FUNCTIONAL RESULTS (calculated via Gated SPECT) Stress Image LV EF (%): 85 Stress EDV (mL):62 TID: 1.13 Stress ESV (mL):9 FUNCTIONAL FINDINGS: The left ventricle is normal in size. Transient Ischemia Dilatation of 1.1. There is normal left ventricular systolic function. The left ventricular ejection fraction is hyperdynamic with a value of 85%. There is hyperdynamic left ventricular wall thickening. IMPRESSIONS 1. Myocardial perfusion imaging is normal. 2. Overall left ventricular systolic function is hyperdynamic without regional wall motion abnormalities, LVEF=85%. 3. EKG portion of the study will be reported separately. Candice Hodgson MD (Electronically Signed) Final Date: 01 April 2022 12:54 S
[2022-03-31 09:06] VITALS: BMI 27.4
[2022-03-31 11:10] VITALS: BP 153/72; PULSE 84
== END 2022-03-31 08:28 | disposition home or self-care (01) ==
LOC: CDL 08:30
PROVIDERS: PCP Family Medicine; Visit Provider Family Medicine
DX: R07.9 Chest pain, unspecified (principal)
CPT/HCPCS: 78452; 93017; A9500

== ENCOUNTER → 2022-04-21 08:22 | Outpatient (BNVA) | payer MEDICARE, OTHER, SELFPAY | PROVIDERS: PCP Family Medicine; Visit Provider Internal Medicine | DX: R79.89 Other specified abnormal findings of blood chemistry (principal); E04.1 Nontoxic single thyroid nodule | CPT/HCPCS: 99213; 99214 ==

== ENCOUNTER → 2022-10-20 08:37 | Outpatient (BNVA) | payer MEDICARE, OTHER, SELFPAY | PROVIDERS: PCP Family Medicine; Visit Provider Internal Medicine | DX: E04.1 Nontoxic single thyroid nodule (principal); R79.89 Other specified abnormal findings of blood chemistry | CPT/HCPCS: 36415; 84439; 84443; 84480; 99213; 99214 ==

== ENCOUNTER 2023-02-02 09:45 | Outpatient (CLI) | payer MEDICARE, OTHER, SELFPAY ==
--- NOTE | 2023-02-02 10:00 | MM_ITS ---
WS: [id number] LEFT DIGITAL TOMOSYNTHESIS MAMMOGRAPHY WITH CAD. HISTORY: HX OF BREAST CA;RT MASTECTOMY COMPARISON: 10/10/2021, 10/10/2020 Technique: CC, MLO and ML views. Breast composition: There are scattered areas of fibroglandular density. Calcifications in the poste rior LEFT breast. Vascular calcifications. No new or increasing cluster of calcifications. No distort ion. MM/[place] [id number] IMPRESSION: BI-RADS: 2-Benign FOLLOW UP: 1 Year Follow-up
== END 2023-02-02 09:46 | disposition home or self-care (01) ==
PROVIDERS: PCP Family Medicine; Visit Provider Family Medicine
DX: Z85.3 Personal history of malignant neoplasm of breast (principal); Z90.11 Acquired absence of right breast and nipple
CPT/HCPCS: 77061; G0279

== ENCOUNTER 2023-07-28 13:37 | Emergency (ER) | payer MEDICARE, OTHER, SELFPAY ==
[2023-07-28 13:54] VITALS: BP 111/70; PULSE 71; RESP 16; TEMP 36.4; O2SAT 98; BMI 26.6
--- NOTE | 2023-07-28 15:14 | ED_ITS ---
HPI - Back Pain/Injury General: Chief Complaint: Back Pain/Injury Stated Complaint: Lower back pain Time Seen by Provider: 07/28/23 15:12 Source: patient and family Mode of arrival: ambulatory Limitations: no limitations History of Present Illness: Patient is a nice 87-year-old female presents to ED today for evaluation of right lower back pain with radiation down into her right leg. She states symp toms started a little over a week ago. She was evaluated by her PCP Dr. Friedman who placed her on steroids, Flexeril, and Tylenol 3. She went ahead and scheduled an ultrasound which reportedly has already been approved and just waiting on scheduling. Patient states pain has not improved. She states she is concerned today as she is a previous breast cancer patient and she is worried about cancer spread to her lower back or hip. She also has a concern as she has had a stent placed in her left femoral artery for previous occlusion. She states during that surgery she was told they put a stent in her right iliac ? and is concerned that maybe it has occluded. She has not noticed any color or temperature changes to the right lower extremity. She has not noticed any calf pain. She denies numbness/tingling. She does feel like the pain in her right lower back radiates into her right buttock and then down the lateral aspect of the right leg before wrapping around to the top of her foot. MD elicited complaint: back pain Onset (ago): day(s) Timing: constant Severity: severe Location: right lower back Radiation: right leg below the knee Exacerbating factors: movement and walking Relieving factors: none Associated symptoms: Reports difficulty walking (secondary to pain) and vomiting; Deny abdominal pain, chills, change in bowel habits, dysuria, fatigue, fever(s), hematuria or nausea Treatments prior to arrival: prescription analgesics and other (steroids, muscle relaxers) Work related injury: No Review of Systems Const: Denies: fever(s), chills, body aches, fatigue or malaise Card: Denies: chest pain Resp: Denies: dyspnea GI: Reports: vomiting; Denies: abdominal pain, nausea, hematemesis, diarrhea or change in bowel habits : Denies: flank pain, dysuria or hematuria Musc: Reports: back pain; Denies: neck pain, extremity pain, extremity swelling, joint pain, joint swelling, joint redness, joint warmth, joint stiffness, limited range of motion, muscle cramps, muscle weakness or decrease in muscle mass Skin/Breast: Denies: rash Neuro: Reports: difficulty walking (secondary to pain); Denies: headache(s), numbness in extremities, weakness in extremities or sensory changes PFSH ED PFSH: Medical History Hypertension Surgical History History of mastectomy History of thyroidectomy, total Family History Father Lung disease Heart problem Myocardial infarction acute Mother Diabetes Social History Smoking and tobacco/nicotine status: never used tobacco/nicotine Second hand smoke exposure: Yes Alcohol intake: current Alcohol intake frequency: holidays/special occasions only Physical Exam Const: COMMON NORMALS: no acute distress, average body habitus, patient oriented x3, no limitations, healthy appearing, alert and well nourished Resp: COMMON NORMALS: normal respiratory effort and clear to auscultation bilaterally AUSCULTATION: clear to auscultation bilaterally Cardio: COMMON NORMALS: regular rate and regular rhythm RATE: regular rate RHYTHM: regular rhythm GI: COMMON NORMALS: no masses : COMMON NORMALS: Yes no CVA tenderness BLADDER/KIDNEY EXAM: Yes no CVA tenderness Back/Pelvis: COMMON NORMALS: no CVA tenderness and thoracic and lumbar spine normal to inspection THORACIC SPINE/UPPER BACK: No thoracic spinal tenderness and No paraspinal muscle tenderness LUMBAR SPINE/LOWER BACK: No lumbar spinal tenderness, Yes paraspinal muscle tenderness Lumbar paraspinal muscle tenderness: right, No mass present and Yes straight leg raise negative bilaterally PELVIS: Yes sciatic notch tenderness SACROILIAC JOINTS: Yes SI joint(s) abnormal SI joint details: tender to palpation SACRUM: no tenderness COCCYX: no tenderness Extremity: COMMON NORMALS: normal to inspection, full ROM, capillary refill normal, no joint enlargement, no clubbing, cyanosis or edema, no calf tenderness and no pedal edema NARRATIVE EXTREMITY EXAM: pulses felt/palpated all the way down her R LE starting at her femoral artery Neuro: COMMON NORMALS: patient oriented x3, moves all extremities, no focal motor deficits and no sensory deficits noted SENSORIUM/ORIENTATION: Yes alert MOTOR EXAM: 5/5 motor strength present throughout Skin: COMMON NORMALS: no rashes or lesions noted GENERAL SKIN EXAM: no rashes or lesions noted Course Vital Signs: Vital signs: Vital Signs Temperature 97.6 F 07/28/23 13:54 Pulse Rate 71 07/28/23 13:54 Respiratory Rate 16 07/28/23 13:54 Blood Pressure 111/70 07/28/23 13:54 Pulse Oximetry 98 07/28/23 13:54 Oxygen Delivery Me thod Room Air 07/28/23 15:15 MDM - Back Pain/Injury Medical Decision Making Patient's history and physical exam is consistent with a right-sided lower back pain with sciatica. She was concerned as she reportedly has a right iliac stent and questioned the patency of this. I can palpate pulses in her entire right lower extremity starting at her femoral artery down. Her leg is not cool to the touch. Color is normal. At this time I would not have any concern for an occluded stent. She also had a concern for possible lytic lesion as she is status post mastectomy for breast cancer. XR ordered of her hip and pelvis which does not show any bony lesion. Discussed how plain films are not necessarily the diagnostic imaging of choice and that if she has further concerns with this she may speak to her primary care provider. She does reportedly already have an MRI scheduled and just waiting on central scheduling for this. She will continue her meds given to her by her PCP. She does state she only has about 4 days left of the Tylenol #3 so will provide more of this. Return to ED precautions given. Differential Diagnosis Likely lumbar radiculopathy and sciatica All radiology interpretation(s) finalized by discharge Discharge Plan Discharge Patient Disposition: Home Clinical Impression: Acute right-sided low back pain with right-sided sciatica Condition: Stable Prescriptions: New acetaminophen-codeine 300-30 mg tablet 1 tab PO Q6H PRN (Reason: pain) Qty: 14 0RF No Action timolol 0.5 % drops 1 drp ophthalmic (eye) BID Rx Instructions: each eye aspirin [Adult Aspirin Regimen] 81 mg tablet,delayed release (DR/EC) 81 mg PO QAM benazepril-hydrochlorothiazide 20-25 mg tablet 1 tab PO DAILY cholecalciferol (vitamin D3) [Vitamin D3] 25 mcg (1,000 unit) Capsule 3,000 unit PO QAM Discharge Orders: Discharge ED (Routine); Ordered 07/28/23 Ordered By: Deb Manzo Referrals: Jacqueline Friedman MD [Primary Care Provider] - Patient Instructions: Lumbar Radiculopathy (ED), Lower Back Exercises (ED), Sciatica Coding Level of Care Code ED Group Sales Representative for Tatyana Arauz
--- NOTE | 2023-07-28 15:32 | XR_ITS ---
WS: [id number] Exam: XR hip RT 2-3V wo/w pel* [id number] Date/Time of Exam: 07/28/2023 3:42 PM Reason For Exam: pain; one view pelvis too please No fracture or dislocation. Mild degenerative change of the acetabulum. The joint compartment is rela tively well-maintained. Normal soft tissues. A vascular stent partially visualized in the LEFT common femoral artery as well as the RIGHT common iliac artery.. No pelvic fracture. Moderately advanced de generative change of the visualized lower lumbar spine. IMPRESSION: 1. Mild DJD. No fracture or other significant finding. 2. AP image of the pelvis shows no fracture or other significant finding.
[2023-07-28 16:21] VITALS: BP 131/73; PULSE 60; O2SAT 96
== END 2023-07-28 16:22 | disposition home or self-care (01) ==
PROVIDERS: Emergency Provider Physician Assistant; PCP Family Medicine
DX: M54.41 Lumbago with sciatica, right side (principal); Z79.82 Long term (current) use of aspirin; I10 Essential (primary) hypertension; Z77.22 Contact with and (suspected) exposure to environmental tobacco smoke (acute) (chronic)
CPT/HCPCS: 73502; 99283

== ENCOUNTER 2023-08-19 07:50 | Outpatient (CLI) | payer MEDICARE, OTHER, SELFPAY ==
--- NOTE | 2023-08-19 07:55 | MR_ITS ---
WS: [id number] MRI LUMBAR SPINE WITH AND WITHOUT CONTRAST HISTORY: R SIDE SCIATICA COMPARISON: None available. TECHNIQUE: Sagittal and axial multisequence imaging is submitted. Postcontrast sequences, MultiHance 16 mL IV. Moderate increase in thoracic kyphosis. Slight straightening and RIGHT curvature of the lumbar spine. No acute fractures. Reactive marrow mindy ma along the endplates of L4 and L5. No loss of vertebral body height. Mild narrowing of the disc spaces. Most significant narrowing is at L3-4, L4-5 and L5-S1. Conus terminates normally at L1-2 disc level. L1-L2: Mild facet arthritis. No stenosis. L2-L3: Mild annular disc bulging asymmetric to the RIGHT. Moderate ligamentum flavum and facet arthri tis. Very mild central and subarticular recess encroachment. L3-L4: Slight anterolisthesis of L3. Annular disc bulging with ligamentum flavum and facet arthritis. Central and bilateral subarticular recess and foraminal stenosis is mild. Slightly greater encroachm ent upon the traversing LEFT L4 nerve root. L4-L5: Diffuse annular disc bulging slightly greater to the RIGHT. Encroachment upon the ventral thec al sac. Moderate ligamentum flavum and facet arthritis. Bilateral moderate foraminal stenosis due to disc, osteophyte and facet disease. L5-S1: Mild annular disc bulging and osteophytic ridging. Mild LEFT and moderate RIGHT foraminal sten osis. There is disc contacting the RIGHT exiting L5 nerve root. Contact but no displacement on the RI GHT S1 nerve root. There is enhancement within the L4 and L5 vertebral bodies in the site of marrow edema. This is likel y reactive and may be due to some instability. Less likely osteomyelitis. There is no fluid in the di sc space. There does appear to be a small amount of reactive marrow edema surrounding the L4-5 verteb ral bodies. No epidural abscess or enhancement. IMPRESSION: 1. RIGHT curvature lumbar spine. No acute spine fracture. 2. Marrow edema in the adjacent endplates of L4 and L5. There is enhancement at the site of the ruby ow edema. This can be seen with instability or acute inflammatory process. Osteomyelitis should be co nsidered also although thought less likely. There is no fluid in the disc space to suggest discitis. 3. L4-5: Moderate bilateral foraminal stenosis with encroachment upon the L4 and L5 nerve roots. Mil d central stenosis. 4. L5-S1: Moderate RIGHT foraminal stenosis and mild LEFT foraminal stenosis. There is slight disc c ontacting the RIGHT L5 and S1 nerve roots. 5. L3-4: Mild central, bilateral subarticular recess and foraminal stenosis.
[2023-08-19] MEDS: gadobenate dimeglumine 20 mL vial IV (08:52)
== END 2023-08-19 07:51 | disposition home or self-care (01) ==
LOC: RAD 07:50
PROVIDERS: PCP Family Medicine; Visit Provider Family Medicine
DX: M51.17 Intervertebral disc disorders with radiculopathy, lumbosacral region (principal); M48.07 Spinal stenosis, lumbosacral region; M43.9 Deforming dorsopathy, unspecified
CPT/HCPCS: 72158; A9577

== ENCOUNTER → 2023-10-21 08:44 | Outpatient (BNVA) | payer MEDICARE, OTHER, SELFPAY | PROVIDERS: PCP Family Medicine; Visit Provider Internal Medicine | DX: E04.1 Nontoxic single thyroid nodule (principal); R79.89 Other specified abnormal findings of blood chemistry | CPT/HCPCS: 36415; 84439; 84443; 84480; 99214 ==

== ENCOUNTER 2024-03-16 09:02 | Outpatient (CLI) | payer MEDICARE, OTHER, SELFPAY ==
--- NOTE | 2024-03-16 09:10 | MM_ITS ---
WS: [id number] DIAGNOSTIC LEFT DIGITAL TOMOSYNTHESIS MAMMOGRAPHY WITH CAD. HISTORY: HX OF BREAST CANCER COMPARISON: 02/02/2023, 10/10/2021, 04/25/2021 Technique: CC, MLO and ML views. Breast composition: There are scattered areas of fibroglandular density. Scattered vascular calcific ations are stable. Grouping of calcifications in the upper outer quadrant are stable. No suspicious m asses or grouping of calcifications. MM/[place] [id number] IMPRESSION: BI-RADS: 2 - Benign. FOLLOW UP: 1 Year Follow-up
== END 2024-03-16 09:03 | disposition home or self-care (01) ==
LOC: RAD 09:02
PROVIDERS: PCP Family Medicine; Visit Provider Family Medicine
DX: Z85.3 Personal history of malignant neoplasm of breast (principal); R92.323 Mammographic fibroglandular density, bilateral breasts; R92.1 Mammographic calcification found on diagnostic imaging of breast
CPT/HCPCS: 77061; G0279

== ENCOUNTER 2025-03-20 09:24 | Outpatient (CLI) | payer MEDICARE, OTHER, SELFPAY ==
--- NOTE | 2025-03-20 09:33 | MM_ITS ---
WS: [id number] DIAGNOSTIC LEFT DIGITAL BREAST TOMOSYNTHESIS WITH CAD HISTORY: HX OF BREAST CANCER R BREAST COMPARISON: 03/16/2024, 02/02/2023, 10/10/2021 Left craniocaudal, mediolateral oblique and medial lateral images are submitted with tomosynthesis and SM. Computer aided detection performed. Breast composition: There are scattered areas of fibroglandular density. Benign calcifications in the central LEFT breast. Arterial calcifications. No distortion. No mass. MM/MM diag BI tomosynthesis [id number] IMPRESSION: BI-RADS: 2 - Benign. FOLLOW UP: 1 Year Follow-up
== END 2025-03-20 09:25 | disposition home or self-care (01) ==
LOC: RAD 09:26
PROVIDERS: PCP Family Medicine; Visit Provider Family Medicine
DX: Z85.3 Personal history of malignant neoplasm of breast (principal); R92.323 Mammographic fibroglandular density, bilateral breasts; R92.1 Mammographic calcification found on diagnostic imaging of breast
CPT/HCPCS: 77062; G0279